=== PATIENT | female | born 1955 | race Two or more races ===

== ENCOUNTER → 2020-12-03 | Outpatient (CLI) | payer MEDICARE | END | disposition home or self-care (01) | LOC: CFH 09:50 | PROVIDERS: ATTEND Internal Medicine | DX: Z12.2 Encounter for screening for malignant neoplasm of respiratory organs (principal); J43.9 Emphysema, unspecified; F17.211 Nicotine dependence, cigarettes, in remission | CPT/HCPCS: 71271 ==